=== PATIENT | female | born 1955 | race Caucasian/White ===

== ENCOUNTER 2018-11-29 11:48 | Day surgery (SDC) | payer BC, OTHER ==
[~2018-11-29] VITALS: Ht 152.4 cm; Wt 77.4 kg
[2018-11-29] MEDS ORDERED: MONT10TA24 PO (13:02)
[2018-11-29] MEDS ORDERED: IBUP-1545 PO (13:02)
[2018-11-29] MEDS ORDERED: ASPI-903 PO (13:02)
[2018-11-29] MEDS ORDERED: ATOR20TA38 PO (13:02)
[2018-11-29] MEDS ORDERED: CETI10TA PO (13:02)
[2018-11-29] MEDS ORDERED: METF500T24 PO (13:02)
[2018-11-29] MEDS ORDERED: RANI150C11 PO (13:02)
[2018-11-29] MEDS ORDERED: LOSA25TA12 PO (13:02)
[2018-11-29 13:04] VITALS: Ht 152.4 cm; Wt 77.4 kg
[2018-11-29 13:39] VITALS: BP 149/68; PULSE 60; RESP 10
--- NOTE | 2018-11-29 14:27 | PREAC ---
Date/Time of Note Date/Time of Note DATE: 11/29/18 TIME: 14:25 Anesthesia Eval and Record Evaluation Time Pre-Procedure Interview DATE: 11/29/18 TIME: 14:25 Age 63 Sex female NPO: 8 hrs Preoperative diagnosis screening Planned procedure colonoscopy Past Medical History Past Medical History: Includes Cardio: HTN, Dyslipidemia Endo: Diabetes GI: Obesity Surgery & Anesthesia Issues No known issue Meds Anticoagulation: No Beta Bucky within 24 hr: No Reason Beta Bucky not given: Pt. not on B-Bucky Reported Medications Montelukast Sodium* (Montelukast Sodium*) 10 Mg Tablet, 10 MG PO QHS, #30 TAB 11/29/18 Ibuprofen* (Ibuprofen*) 800 Mg Tab, 800 MG PO Q6H PRN for PAIN, TAB 11/29/18 Ranitidine Hcl (Ranitidine Hcl) 150 Mg Capsule, 150 MG PO HS, #30 CAP 11/29/18 Aspirin* (Aspirin* Chew) 81 Mg Tab.chew, 81 MG PO DAILY, TAB.CHEW 11/29/18 Cetirizine Hcl (ALL DAY ALLERGY RELIEF) 10 Mg Tablet, 10 MG PO DAILY, TAB 11/29/18 Atorvastatin Calcium* (Atorvastatin Calcium*) 20 Mg Tablet, 20 MG PO QHS, #30 TAB 11/29/18 Losartan Potassium* (Losartan Potassium*) 25 Mg Tablet, 25 MG PO DAILY, TAB 11/29/18 Metformin Hcl* (Metformin Hcl*) 500 Mg Tablet, 500 MG PO WITH MEALS, #90 TAB 11/29/18 Meds reviewed: Yes Allergies Coded Allergies: No Known Allergy (Unverified , 11/29/18) Allergies Reviewed: Yes Labs/Studies Labs Reviewed: Reviewed by anesthesiologist test: N/A Pre-procedure Exam Last vitals Vital Signs Date Temp Pulse Resp B/P (MAP) Pulse Ox O2 O2 Flow FiO2 Time Delivery Rate 11/29/18 97.7 60 10 149/68 99 Room Air 13:39 (95) Airway: Adequate mouth opening, Adequate thyromental dist Mallampati: Mallampati II Teeth: Normal Lung: Normal Heart: Normal ASA Physical Status ASA physical status: 2 Emergency: None Planned Anesthetic General/MAC: MAC Pre-operative Attestations Prior to commencing anesthesia and surgery, the patient was re-evaluated, there was verification of: *The patient's identity *The results of appropriate recent lab work and preoperative vital signs *The above evaluation not changing prior to induction *Anesthetic plan, risk benefits, alternative and complications discussed with patient/family; questions answered; patient/family understands, accepts and wishes to proceed. Rn Cardiac Cath used MIKEL HENLEY November 29, 2018 14:27
[2018-11-29] MEDS ORDERED: PROPOFOL 40 ML ONE (14:28)
[2018-11-29] MEDS ORDERED: LIDOCAINE 2% (SDV) 5 ML INJ ONE (14:28)
[2018-11-29] MEDS ORDERED: ONDANSETRON 4 MG INJ IV PRN (14:30)
[2018-11-29] MEDS ORDERED: ACETAMINOPHEN 500 MG TAB PO PRN (14:30)
[2018-11-29] MEDS ORDERED: FENTAnyl 50 MCG/ML VIAL IV PRN (14:30)
[2018-11-29] MEDS ORDERED: ALBUTEROL 0.083% (NEB) 2.5 MG/3 ML AMP HHN PRN (14:30)
[2018-11-29 14:47] VITALS: BP 101/53; PULSE 56; RESP 16
[2018-11-29 14:55] VITALS: BP 124/59; RESP 19
[2018-11-29 15:11] VITALS: BP 133/59; PULSE 53; RESP 18
--- NOTE | 2018-11-30 12:50 | PAC ---
Date/Time of Note Date/Time of Note DATE: 11/30/18 TIME: 12:50 Post-Anesthesia Notes Post-Anesthesia Note Last documented vital signs Vital Signs Date Temp Pulse Resp B/P (MAP) Pulse Ox O2 O2 Flow FiO2 Time Delivery Rate 11/29/18 97.1 53 18 133/59 98 Room Air 15:11 (83) Activity: WNL Respiratory function: WNL Cardiovascular function: WNL Mental status: Baseline Pain reasonably controlled: Yes Hydration appropriate: Yes Nausea/Vomiting absent: Yes MIKEL HENLEY November 30, 2018 12:50
== END 2018-11-29 14:59 | disposition home or self-care (01) ==
LOC: GIL 11:48
PROVIDERS: ATTEND Internal Medicine Gastroenterology
DX: Z12.11 Encounter for screening for malignant neoplasm of colon (principal); K64.8 Other hemorrhoids; I10 Essential (primary) hypertension; E11.9 Type 2 diabetes mellitus without complications; Z79.82 Long term (current) use of aspirin; Z79.84 Long term (current) use of oral hypoglycemic drugs
CPT/HCPCS: 45378; 82962; Z7610